=== PATIENT | male | born 1930 | race Caucasian/White ===

== ENCOUNTER 2018-01-03 18:44 | Inpatient (IN) | payer MEDICARE, OTHER ==
[2018-01-03] MEDS ORDERED: SYNTHROID0.075 MG/T PO (21:42)
[2018-01-03] MEDS ORDERED: CELEXA 20MG20 MG/TAB PO (21:43)
[2018-01-03] MEDS ORDERED: BUSPIRONE HCL7.5 MG PO (21:43)
[2018-01-03] MEDS ORDERED: BUMEX 1MG TA1 MG/TA1 PO (21:44)
[2018-01-03] MEDS ORDERED: SINEMET 25/101 UDTAB PO (21:45)
[2018-01-03] MEDS ORDERED: LIPITOR 10MG10 MG PO (21:46)
[2018-01-03] MEDS ORDERED: ATARAX 10MG10 MG/TAB PO (21:47)
[2018-01-03 22:36] VITALS: BP 140/63; PULSE 71; TEMP 98.3
[2018-01-03 23:22] VITALS: BP 122/73; PULSE 74
[2018-01-03 23:37] VITALS: BP 136/74; PULSE 77
[2018-01-03 23:52] VITALS: BP 128/74; PULSE 77
[2018-01-04] VITALS (10 sets, daily range): BP systolic 92–130; BP diastolic 57–79; PULSE 64–77; TEMP 97.8–98.6
[2018-01-04 01:05] LABS: CALCIUM 8.9 mg/dL (8.4-10.2); CREATININE, serum 0.82 mg/dL (0.66-1.25); MAGNESIUM 1.9 mg/dL (1.6-2.3)
[2018-01-04 01:23] LABS: POTASSIUM 2.8 mmol/L (3.4-5.0)
[2018-01-04 01:36] LABS: TSH w REFLEX 1.78 uIU/mL (0.465-4.680)
[2018-01-04 06:59] LABS: BASO % 0.2 % (0.0-2.0); EOS % 0.4 % (0-4.0); GRAN # 6.6 (1.4-6.5); HEMATOCRIT 37.2 % (42.0-52.0); HEMOGLOBIN 12.4 g/dl (13.5-18.0); LYMPH # 0.9 (1.2-3.4); LYMPH % 10.6 % (20.0-51.0); MEAN CELL VOLUME 97 fl (80.0-100.0); MEAN CORPUSCULAR HEMOGLOBIN 32 pg (27.0-31.0); MEAN CORPUSCULAR HGB CONC 33 g/dl (33.0-37.0); MEAN PLATELET VOLUME 11.1 fl (7.4-10.4); MONO # 0.8 (0.1-0.6); MONO % 9.6 % (1.7-9.3); PLATELET COUNT 177 K/mm3 (130-400); RED BLOOD COUNT 3.85 M/mm3 (4.20-5.60); REDCELL DISTRIBUTION WIDTH-CV 13.5 % (11.5-14.5)
[2018-01-04 07:15] LABS: ALBUMIN 3.5 gm/dL (3.5-5.0); BILIRUBIN,TOTAL 0.7 mg/dL (0.0-1.0); CALCIUM 8.7 mg/dL (8.4-10.2); CREATININE, serum 0.78 mg/dL (0.66-1.25); TOTAL PROTEIN 6.3 gm/dL (6.4-8.2)
[2018-01-04 07:30] LABS: POTASSIUM 2.7 mmol/L (3.4-5.0)
[2018-01-05 04:34] VITALS: BP 151/85; PULSE 71; TEMP 98.1
[2018-01-05 07:35] VITALS: BP 134/69; PULSE 78; TEMP 99.3
[2018-01-05 10:50] VITALS: BP 124/88; PULSE 74; TEMP 98.2
[2018-01-05 16:12] VITALS: BP 117/70; PULSE 72; TEMP 97.6
[2018-01-05 19:15] VITALS: BP 103/57; PULSE 73; TEMP 98
[2018-01-06 05:50] VITALS: BP 138/80; PULSE 64; TEMP 98.5
[2018-01-06 07:28] LABS: CALCIUM 8.5 mg/dL (8.4-10.2); CREATININE, serum 0.65 mg/dL (0.66-1.25); POTASSIUM 3.3 mmol/L (3.4-5.0)
[2018-01-06 07:31] LABS: BASO % 0.4 % (0.0-2.0); EOS # 0.2 (0.0-0.7); EOS % 2.4 % (0-4.0); GRAN # 5.3 (1.4-6.5); GRAN % 75.6 % (42.2-75.2); HEMATOCRIT 37.9 % (42.0-52.0); HEMOGLOBIN 12.4 g/dl (13.5-18.0); LYMPH # 0.9 (1.2-3.4); LYMPH % 12.8 % (20.0-51.0); MEAN CELL VOLUME 99 fl (80.0-100.0); MEAN CORPUSCULAR HEMOGLOBIN 32 pg (27.0-31.0); MEAN CORPUSCULAR HGB CONC 33 g/dl (33.0-37.0); MEAN PLATELET VOLUME 11.2 fl (7.4-10.4); MONO # 0.6 (0.1-0.6); MONO % 8.5 % (1.7-9.3); PLATELET COUNT 172 K/mm3 (130-400); RED BLOOD COUNT 3.84 M/mm3 (4.20-5.60); REDCELL DISTRIBUTION WIDTH-CV 13.6 % (11.5-14.5)
[2018-01-06 08:19] VITALS: BP 136/74; PULSE 69; TEMP 97.9
[2018-01-06] MEDS ORDERED: K-TAB20 PO (08:56)
[2018-01-06] MEDS ORDERED: BUMEX0.5 MG PO (08:56)
[2018-01-06] MEDS ORDERED: LEVAQUIN 5500 MG/TA1 PO (08:57)
== END 2018-01-06 11:05 | DRG 388 ==
LOC: SURG 18:44
PROVIDERS: Hospitalist; Nurse Practitioner Family; Surgery
PROC: 0D7N8ZZ Dilation of Sigmoid Colon, Via Natural or Artificial Opening Endoscopic (ICD-10-PCS; principal; 2018-01-03 22:00)
DX: K56.2 Volvulus (principal); J18.9 Pneumonia, unspecified organism; E44.0 Moderate protein-calorie malnutrition; Z66 Do not resuscitate; E87.6 Hypokalemia; I10 Essential (primary) hypertension; G20 Parkinson's disease; Z85.46 Personal history of malignant neoplasm of prostate
CPT/HCPCS: 99223; 99232-AI; 99239; A9284; J0456; J0696; J1644; J2370; J2704; J3010; J3480; J7050; J7120